=== PATIENT | female | born 1990 | race Caucasian/White ===

== ENCOUNTER 2017-12-08 01:26 | Outpatient (CLI) | payer OTHER ==
[2017-12-08] MEDS: LR 1,000 ML IV (06:36)
[2017-12-08] MEDS: BETAMETHASONE SOLUSPAN 6MG/ML INJ 5ML (J0702) IM (06:43)
== END 2017-12-08 11:30 | disposition home or self-care (01) ==
LOC: M LDO 01:26
DX: O47.03 False labor before 37 completed weeks of gestation, third trimester (principal); Z3A.36 36 weeks gestation of pregnancy; O30.043 Twin pregnancy, dichorionic/diamniotic, third trimester
CPT/HCPCS: J0702

== ENCOUNTER 2017-12-09 08:04 | Outpatient (CLI) | payer OTHER ==
[2017-12-09] MEDS: BETAMETHASONE SOLUSPAN 6MG/ML INJ 5ML (J0702) IM (09:11)
== END 2017-12-09 09:30 | disposition home or self-care (01) ==
LOC: M LDO 08:04
DX: O30.043 Twin pregnancy, dichorionic/diamniotic, third trimester (principal); Z3A.36 36 weeks gestation of pregnancy
CPT/HCPCS: J0702

== ENCOUNTER → 2017-12-10 | Outpatient (CLI) | payer OTHER | LOC: M RAD 13:36 | DX: O30.043 Twin pregnancy, dichorionic/diamniotic, third trimester (principal); Z3A.36 36 weeks gestation of pregnancy | CPT/HCPCS: 76820 ==

== ENCOUNTER 2017-12-19 06:50 | Inpatient (IN) | payer OTHER ==
[2017-12-19] MEDS: LR 1,000 ML IV ×4 (07:45→19:00)
[2017-12-19 08:02] LABS: HEMATOCRIT 33.7 % (36.0-47.0); HEMOGLOBIN 11.3 g/dl (12.0-15.5); MEAN CORPUSCULAR HEMOGLOBIN 30.5 pg (27.0-33.0); MEAN CORPUSCULAR HGB CONC 33.5 g/dl (32.0-36.5); MEAN CORPUSCULAR VOLUME 91.1 fl (80.0-96.0); PLATELET COUNT, AUTOMATED 144 10^3/uL (150-450); RED CELL DISTRIBUTION WIDTH 13.2 % (11.5-14.5); WHITE BLOOD COUNT 11.7 10^3/uL (4.0-10.0)
[2017-12-19] MEDS: PRENATAL VITAMINS CHEWABLE TABLET PO (09:00)
[2017-12-19] MEDS: BICITRA 30ML SOLN UDC PO (09:18)
[2017-12-19] MEDS ORDERED: NALBUPHINE HCL 10 MG/ML AMP (J2300) IV ×2 (09:27→11:15)
[2017-12-19] MEDS ORDERED: NALOXONE INJ 0.4 MG/1 ML VIAL (J2310) IV ×2 (09:27)
[2017-12-19] MEDS ORDERED: METOCLOPRAMIDE INJ 10MG/2ML VIAL (J2765) IV (09:27)
[2017-12-19] MEDS ORDERED: ONDANSETRON 4MG/2ML VIAL (J2405) As Ordered (10:00)
[2017-12-19] MEDS ORDERED: MIDAZOLAM INJ 2 MG/2 ML VIAL (J2250) As Ordered ×2 (10:00→10:12)
[2017-12-19] MEDS ORDERED: OXYTOCIN INJ 10 UNITS/ML VIAL (J2590) As Ordered (10:00)
[2017-12-19] MEDS ORDERED: MORPHINE PRES-FREE INJ 10 MG/10 ML VIAL (J2274) As Ordered (10:00)
[2017-12-19] MEDS ORDERED: KETAMINE HCL 200 MG/20 ML VIAL As Ordered (10:11)
[2017-12-19] MEDS ORDERED: MEASLES,MUMPS,RUBELLA VACCINE INJ (MMR-II) (90707) SC (11:00)
[2017-12-19] MEDS ORDERED: RHOGAM 300 MCG (1500 IU) INJ (J2790) IM (11:00)
[2017-12-19] MEDS ORDERED: KETOROLAC 30 MG/ML VIAL (J1885) As Ordered (11:01)
[2017-12-19] MEDS ORDERED: ONDANSETRON 4MG/2ML VIAL (J2405) IV (11:15)
[2017-12-19] MEDS ORDERED: MEPERIDINE INJ 25 MG/ML VIAL (J2175) IV (11:15)
[2017-12-19] MEDS ORDERED: fentaNYL 100 MCG/2 ML INJECTION (J3010) IV (11:15)
[2017-12-19] MEDS: KETOROLAC 30 MG/ML VIAL (J1885) IV ×3 (11:25→23:34)
[2017-12-19] MEDS: METOCLOPRAMIDE INJ 10MG/2ML VIAL (J2765) IV (13:51)
[2017-12-19] MEDS: PERCOCET 5MG/325MG TAB PO (16:01)
[2017-12-19] MEDS: ONDANSETRON 4MG/2ML VIAL (J2405) IV (16:41)
[2017-12-19] MEDS: DOCUSATE SODIUM 100 MG CAP PO (23:34)
[2017-12-20] MEDS: LR 1,000 ML IV (02:50)
[2017-12-20] MEDS: KETOROLAC 30 MG/ML VIAL (J1885) IV (05:12)
[2017-12-20 07:06] LABS: HEMATOCRIT 28.1 % (36.0-47.0); MEAN CORPUSCULAR HEMOGLOBIN 30.9 pg (27.0-33.0); MEAN CORPUSCULAR HGB CONC 32.7 g/dl (32.0-36.5); MEAN CORPUSCULAR VOLUME 94.3 fl (80.0-96.0); PLATELET COUNT, AUTOMATED 122 10^3/uL (150-450); RED BLOOD COUNT 2.98 10^6/uL (4.00-5.40); RED CELL DISTRIBUTION WIDTH 13.3 % (11.5-14.5)
[2017-12-20 07:14] LABS: HEMOGLOBIN 9.2 g/dl (12.0-15.5)
[2017-12-20] MEDS: DOCUSATE SODIUM 100 MG CAP PO ×2 (08:08→19:57)
[2017-12-20] MEDS: PRENATAL VITAMINS CHEWABLE TABLET PO (08:08)
[2017-12-20] MEDS: PERCOCET 5MG/325MG TAB PO ×4 (08:08→22:37)
[2017-12-20] MEDS: IBUPROFEN 800 MG TAB PO ×2 (12:44→19:58)
[2017-12-21] MEDS: PERCOCET 5MG/325MG TAB PO ×2 (02:52→10:26)
[2017-12-21] MEDS: IBUPROFEN 800 MG TAB PO ×2 (05:00→14:17)
[2017-12-21] MEDS: DOCUSATE SODIUM 100 MG CAP PO (09:56)
[2017-12-21] MEDS: PRENATAL VITAMINS CHEWABLE TABLET PO (09:56)
== END 2017-12-21 16:50 | disposition home or self-care (01) | DRG 766 ==
LOC: M LDI 06:50 → M OBS 12:18
PROVIDERS: Obstetrics & Gynecology
PROC: 10D00Z1 Extraction of Products of Conception, Low, Open Approach (ICD-10-PCS; principal; 2017-12-19 09:15)
DX: O30.043 Twin pregnancy, dichorionic/diamniotic, third trimester (principal); Z3A.38 38 weeks gestation of pregnancy; O69.81X2 Labor and delivery complicated by cord around neck, without compression, fetus 2; Z37.2 Twins, both liveborn